=== PATIENT | female | born 1960 | race Caucasian/White ===

== ENCOUNTER → 2017-09-02 | Outpatient (CLI) | payer BC ==
[~2017-09-02] MED LIST: ACETAZOLAMIDE; ADVIL100 MG PO; CARB200 PO; CYCL10 PO; Lovastatin10 MG PO
== END | disposition home or self-care (01) ==
LOC: LAB 10:26
PROVIDERS: Hospitalist
DX: Z12.4 Encounter for screening for malignant neoplasm of cervix (principal)
CPT/HCPCS: G0145

== ENCOUNTER 2018-07-10 06:17 | Day surgery (SDC) | payer BC, OTHER ==
[~2018-07-10] VITALS: Ht 165.1 cm; Wt 97.8 kg
--- NOTE | 2018-07-10 07:34 | NUR ---
07/10/18 0734 Giovanni Pemberton 1ST IV ATTEMPT IN RH UNSUCCESSFUL, ORSC.AMH 2ND IV ATTEMPT IN RWRIST UNSUCCESSFUL, ORSC.RXS 3RD IV ATTEMPT SUCCESSFUL IN RAC, ORSC.RXS
--- NOTE | 2018-07-10 09:09 | NUR ---
07/10/18 0909 Carlota Chaudhary PT INTO RECLINER AT 0905. PT CURRENTLY DENYING PAIN/NAUSEA. FAMILY AT BEDSIDE. WARM BLANKETS PROVIDED. VSS.
== END 2018-07-10 09:52 | disposition home or self-care (01) ==
LOC: ORSCSDS 06:17
PROVIDERS: Surgery
PROC: 0HBU0ZZ Excision of Left Breast, Open Approach (ICD-10-PCS; principal; 2018-07-10 07:30)
DX: D05.12 Intraductal carcinoma in situ of left breast (principal); E78.00 Pure hypercholesterolemia, unspecified; Z79.899 Other long term (current) drug therapy; E66.01 Morbid (severe) obesity due to excess calories; Z68.35 Body mass index [BMI] 35.0-35.9, adult
CPT/HCPCS: 88307; J0690; J2250; J3010; J7120

== ENCOUNTER 2020-04-25 06:53 | Day surgery (SDC) | payer OTHER ==
[~2020-04-25] VITALS: Wt 100.7 kg
--- NOTE | 2020-04-25 08:39 | NUR ---
0809 PATIENT TRANSPORTED [facility] [employer] TO RADIOLOGY FOR SCHEDULED CTA. PATIENT DENIES CHEST PAIN TODAY AND HAS NOT TAKEN ANY MEDICATION IN PREPARTION FOR THIS EXAM. 0830 TRANSPORTED TO RADIOLOGY RECOVERY ROOM VIA GURNEY. STABLE ON FEET. STATES SHE HAS A MILD HEADACHE POST NITRO AND RATES 2/10. DRINKING WATER. Discharge instructions reviewed with patient. Patient verbalizes understanding. Copy given to patient to take home. Patient States Post-Procedure ride home has been arranged with her .
== END 2020-04-25 22:42 | disposition home or self-care (01) ==
LOC: CT 06:53 → ORD 06:53 → CT 08:00 → ORD 22:42
DX: I25.10 Atherosclerotic heart disease of native coronary artery without angina pectoris (principal); E78.5 Hyperlipidemia, unspecified; E66.01 Morbid (severe) obesity due to excess calories; Z79.82 Long term (current) use of aspirin; Z79.02 Long term (current) use of antithrombotics/antiplatelets; Z87.891 Personal history of nicotine dependence; Z88.0 Allergy status to penicillin; Z68.38 Body mass index [BMI] 38.0-38.9, adult; Z82.49 Family history of ischemic heart disease and other diseases of the circulatory system; K21.9 Gastro-esophageal reflux disease without esophagitis
CPT/HCPCS: 75574; Q9967

== ENCOUNTER → 2021-09-13 | Outpatient (CLI) | payer OTHER | END | disposition home or self-care (01) | LOC: LAB 09:15 | PROVIDERS: Hospitalist | DX: Z12.4 Encounter for screening for malignant neoplasm of cervix (principal) | CPT/HCPCS: G0145 ==

== ENCOUNTER 2024-03-08 11:55 | Inpatient (IN) | payer OTHER ==
[~2024-03-08] VITALS: Ht 162.6 cm; Wt 89.1 kg
[2024-03-08] MEDS ORDERED: Aspir 8181 MG PO (12:28)
[2024-03-08] MEDS ORDERED: 1/2 NS 250ml250 ML PO (12:28)
[2024-03-08] MEDS ORDERED: Nitroglycerin 0.4 MG SUBL SL ONE (12:30)
[2024-03-08 12:40] LABS: BASOPHILS ABSOLUTE AUTO 0.04 K/mm3 (0.00-0.23); BASOPHILS PERCENT AUTO 1 % (0-2); EOSINOPHILS ABSOLUTE AUTO 0.05 K/mm3 (0.00-0.68); EOSINOPHILS PERCENT AUTO 1 % (0-6); Hematocrit 43.8 % (33.0-51.0); Hemoglobin 14.8 g/dL (11.5-16.0); IMMATURE GRAN ABSOLUTE AUTO 0.02 K/mm3 (0.00-0.10); IMMATURE GRAN PERCENT AUTO 0 % (0-1); LYMPHOCYTES ABSOLUTE AUTO 2.02 K/mm3 (0.84-5.20); LYMPHOCYTES PERCENT AUTO 37 % (21-46); MONOCYTES ABSOLUTE AUTO 0.41 K/mm3 (0.16-1.47); MONOCYTES PERCENT AUTO 8 % (4-13); Mean Corpuscular HGB 31.5 pg (26.0-34.0); Mean Corpuscular HGB Conc 33.8 g/dL (31.5-36.5); Mean Corpuscular Volume 93 fL (80-100); Mean Platelet Volume 9.2 fL (9.1-12.4); NEUTROPHILS ABSOLUTE AUTO 2.91 K/mm3 (1.96-9.15); NEUTROPHILS PERCENT AUTO 53 % (41-73); Platelet Count 195 K/mm3 (150-400); RDW Standard Deviation 41.8 fL (35.1-46.3); White Blood Cell Count 5.45 K/mm3 (4.00-11.30)
[2024-03-08 12:58] LABS: Albumin, Blood 3.7 g/dL (3.4-5.0); Bilirubin, Total 0.3 mg/dL (0.1-1.0); Bun/Creatinine Ratio 16.2 (12.0-20.0); Calcium, Blood 8.9 mg/dL (8.5-10.1); Creatinine, Blood 0.74 mg/dL (0.40-1.00); Globulin, Blood 3.7 g/dL (2.2-4.0); Potassium, Blood 3.8 mmol/L (3.5-5.5); Total Protein, Blood 7.4 g/dL (6.4-8.2)
[2024-03-08] MEDS ORDERED: Acetaminophen 325 MG TABLET PO PRN (14:15)
[2024-03-08] MEDS ORDERED: Aspirin 325 MG Tab PO ONE (14:21)
[2024-03-08] MEDS ORDERED: Aspirin 325 MG Tab PO SCH (14:45)
[2024-03-08] MEDS ORDERED: Clopidogrel Bisulfate 300 MG Cap PO ONE (15:06)
[2024-03-08 15:37] VITALS: BP 165/88
[2024-03-08] MEDS ORDERED: PredniSONE 20 MG Tab PO SCH (16:00)
[2024-03-08] MEDS ORDERED: Loratadine 10 MG Tab PO SCH (16:00)
[2024-03-08 16:04] LABS: Anti-Xa UFH, PHA Monitoring <0.10 IU/mL; International Normalized Ratio 1.03
[2024-03-08] MEDS ORDERED: Dose Adjust by Pharmacy XX STA ×2 (16:06→23:05)
[2024-03-08] MEDS ORDERED: Heparin Sodium 5000 Units/ML 1ML MDV IV ONE (16:10)
[2024-03-08] MEDS ORDERED: Heparin Sodium,Porcine/0.5 NS 500 ML IV SCH (16:10)
--- NOTE | 2024-03-08 16:36 | NUR ---
ARRIVAL TO PCU 2/SHIFT SUMMARY PT ARRIVED TO PCU 2 AT APPROXIMATELY 1510. PT TRANSFERED FROM ER [facility] TO HOSPITAL BED IND. A&Ox4, ORIENTED TO CALL LIGHT/UNIT, CALLS AND COMMUNICATES NEEDS APPROPRIATELY. BP ELEVATED WITH SBP 160's, ADMINISTERED SCHEDULED BP MEDICATION. SINUS 60-70's, DENIES CP/PRESSURE. SpO2> 92% RA, DENIES SOB. IND IN ROOM. HEPARIN gtt INFUSING PER EMAR, MANAGED BY PHARMACY. DENIES PAIN. SPOUCE AT BEDSIDE. NO OTHER EVENTS, WILL REPORT TO ONCOMING RN.
[2024-03-08] MEDS ORDERED: Carvedilol 3.125 MG Tab PO SCH (17:00)
[2024-03-08 20:03] VITALS: BP 165/90
[2024-03-08] MEDS ORDERED: CarBAMazepine 200 MG Tab PO SCH (21:00)
[2024-03-08 23:42] VITALS: BP 140/83
[2024-03-09] VITALS (14 sets, daily range): BP systolic 96–167; BP diastolic 46–92
[2024-03-09 04:35] LABS: BASOPHILS ABSOLUTE AUTO 0.03 K/mm3 (0.00-0.23); BASOPHILS PERCENT AUTO 1 % (0-2); EOSINOPHILS ABSOLUTE AUTO 0.01 K/mm3 (0.00-0.68); EOSINOPHILS PERCENT AUTO 0 % (0-6); Hematocrit 42.1 % (33.0-51.0); Hemoglobin 14.2 g/dL (11.5-16.0); IMMATURE GRAN ABSOLUTE AUTO 0.01 K/mm3 (0.00-0.10); IMMATURE GRAN PERCENT AUTO 0 % (0-1); LYMPHOCYTES ABSOLUTE AUTO 1.92 K/mm3 (0.84-5.20); LYMPHOCYTES PERCENT AUTO 34 % (21-46); MONOCYTES ABSOLUTE AUTO 0.38 K/mm3 (0.16-1.47); MONOCYTES PERCENT AUTO 7 % (4-13); Mean Corpuscular HGB 31.4 pg (26.0-34.0); Mean Corpuscular HGB Conc 33.7 g/dL (31.5-36.5); Mean Corpuscular Volume 93 fL (80-100); Mean Platelet Volume 9.3 fL (9.1-12.4); NEUTROPHILS ABSOLUTE AUTO 3.31 K/mm3 (1.96-9.15); NEUTROPHILS PERCENT AUTO 59 % (41-73); Platelet Count 193 K/mm3 (150-400); RDW Coefficient Variation 12.2 % (11.7-14.2); RDW Standard Deviation 41.7 fL (35.1-46.3); Red Blood Cell Count 4.52 M/mm3 (3.80-5.20); White Blood Cell Count 5.66 K/mm3 (4.00-11.30)
[2024-03-09 04:54] LABS: Albumin, Blood 3.3 g/dL (3.4-5.0); Albumin/Globulin Ratio 0.9 (0.8-1.8); Bilirubin, Total 0.3 mg/dL (0.1-1.0); Bun/Creatinine Ratio 17.2 (12.0-20.0); Creatinine, Blood 0.64 mg/dL (0.40-1.00); Globulin, Blood 3.5 g/dL (2.2-4.0); Magnesium, Blood 2.1 mg/dL (1.6-2.4); Potassium, Blood 3.7 mmol/L (3.5-5.5); Total Protein, Blood 6.8 g/dL (6.4-8.2)
[2024-03-09] MEDS ORDERED: Dose Adjust by Pharmacy XX STA ×2 (05:11→06:52)
--- NOTE | 2024-03-09 05:36 | NUR ---
Shift summary- Patient has been NPO since mignight for angiogram today, prepped with CHG wipes and changed into gown. Denied chest pain, BP improved. C/O headache at the beginning of the shift which was relieved with PRN tylenol. NSR on tele, VSS on RA. Getting OOB independently. Hep gtt currently infusing at 14u/kg/hr. Uneventful night, slept well and without complaints.
--- NOTE | 2024-03-09 06:59 | NUR ---
Heparin gtt adjustment heparin gtt rate adjusted back to 15u/kg/hr- correction in [place] made on labs
[2024-03-09] MEDS ORDERED: Aspirin 81 MG TabEC PO SCH (09:00)
[2024-03-09] MEDS ORDERED: Clopidogrel Bisulfate 75 MG Tab PO SCH ×2 (09:00→14:30)
[2024-03-09] MEDS ORDERED: Heparin Sodium 1000 Units/ML 10ML MDV ONE (10:36)
[2024-03-09] MEDS ORDERED: NS 250 ML IV ONE (10:36)
[2024-03-09] MEDS ORDERED: Verapamil HCL 2.5 MG/ML 2ML Injection ONE (10:36)
[2024-03-09] MEDS ORDERED: NS 1,000 ML IV ONE ×2 (10:36→10:53)
[2024-03-09] MEDS ORDERED: Nitroglycerin 2 MG/20 ML BTL ONE (10:36)
[2024-03-09] MEDS ORDERED: Midazolam HCl 1MG / ML 2ML Vial ONE (10:53)
[2024-03-09] MEDS ORDERED: FentaNYL Citrate 50 MCG/ML 2 ML Injection ONE (10:53)
--- NOTE | 2024-03-09 10:55 | NUR ---
UPDATE PT TAKEN TO MANUFACTURING [employer]PERATIONS MANAGER FOR PROCEDURE. WILL AWAIT RETURN
[2024-03-09] MEDS ORDERED: DiphenhydrAMINE HCl 50 MG/ML 1ML Vial ONE (11:00)
[2024-03-09] MEDS ORDERED: Famotidine 10 MG/ML 2ML Vial ONE (11:27)
[2024-03-09] MEDS ORDERED: HydrALAZINE HCl 20 MG / ML 1ML Vial ONE (11:48)
--- NOTE | 2024-03-09 12:35 | NUR ---
UPDATE PT RETURNED FROM THE CIDER MAKER. BP STABLE. HR REMAINS NSR 60'S. O2 SATS REMAIN ABOVE 90% ON RA. PT DENIES ANY PAIN. RIGHT RADIAL SITE WITH TR BAND AND 9ML OF AIR IN BAND. PT ECUCATED ON RIGHT ARM RESTRICTIONS. ARM BOARD IN PLACE.
[2024-03-09] MEDS ORDERED: Enoxaparin 40 MG/0.4 ML SYR SC SCH (16:00)
[2024-03-09] MEDS ORDERED: Carvedilol 6.25 MG Tab PO SCH (17:00)
--- NOTE | 2024-03-09 17:30 | NUR ---
SHIFT SUMMARY PT REMAINS ALERT AND ORIENTED. VS STABLE. O2 SATS REMAIN ABOVE 90% ON RA. PT CONTINUES TO DENY ANY PAIN. RIGHT RADIAL SITE RECOVERED ORDERED WITH NO COMPLICATIONS. ARM BOARD CONTINUES TO BE IN PLACE. PT FOLLOWING RIGHT ARM RESTRICTIONS. PT UP INDEPENDENT IN THE ROOM.
--- NOTE | 2024-03-10 00:11 | NUR ---
PT SLEEP IN BED, AWOKE FOR VITAL SIGNS. NO C/O PER PT AT THIS TIME. RT RADIAL SITE REMAINS INTAKE, ARM BOARD IN PLACE.
--- NOTE | 2024-03-10 03:01 | NUR ---
PT C/O MILD RT WRIST PAIN. RT RADIAL ANGIO SITE STILL INTACT NO S/S BRUISING/LEAKING, RADIAL PULSE WNL. PT MEDICATED FOR PAIN SEE SEP.
[2024-03-10 03:59] VITALS: BP 134/79
[2024-03-10 04:05] LABS: Hematocrit 46.6 % (33.0-51.0); Hemoglobin 15.4 g/dL (11.5-16.0); Mean Corpuscular HGB 31.2 pg (26.0-34.0); Mean Corpuscular Volume 94 fL (80-100); Mean Platelet Volume 9.6 fL (9.1-12.4); Platelet Count 215 K/mm3 (150-400); RDW Coefficient Variation 12.5 % (11.7-14.2); RDW Standard Deviation 43.3 fL (35.1-46.3); Red Blood Cell Count 4.94 M/mm3 (3.80-5.20); White Blood Cell Count 6.65 K/mm3 (4.00-11.30)
[2024-03-10 04:26] LABS: Magnesium, Blood 2.2 mg/dL (1.6-2.4)
[2024-03-10 04:27] LABS: Bun/Creatinine Ratio 17.7 (12.0-20.0); Calcium, Blood 9.4 mg/dL (8.5-10.1); Creatinine, Blood 0.79 mg/dL (0.40-1.00); Phosphorus, Blood 3.1 mg/dL (2.5-4.9); Potassium, Blood 3.7 mmol/L (3.5-5.5)
--- NOTE | 2024-03-10 06:29 | NUR ---
NO ISSUES OVER THE SHIFT. RT RADIAL SITE REMAINS INTACT. PT HAD ONE EPISODE OF PAIN AT SITE AND WAS MEDICATED FOR THAT. ARM BOARD REMAINS IN PLACE. PT IS AWARE OF ARM RESTRICTIONS AND FOLLOWS THOSE WELL. VS REMAIN STABLE. PT REMAINS INDEPENDENT TO THE BATHROOM.
[2024-03-10 07:42] VITALS: BP 137/77
[2024-03-10] MEDS ORDERED: PredniSONE 20 MG Tab PO ONE (11:27)
[2024-03-10] MEDS ORDERED: CARV6.25 PO (11:36)
[2024-03-10] MEDS ORDERED: CLOP75 PO (11:36)
[2024-03-10 11:39] VITALS: BP 131/76
--- NOTE | 2024-03-10 12:52 | NUR ---
PT DISCHARGED TO HOME WITH DISCHARGE ORDERS, AT THE BEDSIDE ABLE TO PROVIDE TRANSPORTATION FOR THE PT. VITALS HAS BEEN STABLE. NO CHEST PAIN/PRESSURE. RIGHT RADIAL SITE WITH TEGADERM IN PLACE CDI. PT FOR CARDIAC REHAB REFERRAL. ALL NEW MEDICATIONS AND DISCHARGE INSTRUCTIONS DISCLOSED WITH BOTH PT AND THE . NO OTHER ISSUES ENCOUNTERED ALL BELONGINGS SENT WITH THE PT, PT AMBULATORY UPON DISCHARGE
== END 2024-03-10 12:09 | disposition home or self-care (01) | DRG 287 ==
LOC: ER 11:55 → PCU 11:56
PROVIDERS: Emergency Medicine; ADMIT Hospitalist
PROC: 4A023N7 Measurement of Cardiac Sampling and Pressure, Left Heart, Percutaneous Approach (ICD-10-PCS; principal; 2024-03-09)
PROC: B2111ZZ Fluoroscopy of Multiple Coronary Arteries using Low Osmolar Contrast (ICD-10-PCS; 2024-03-09)
PROC: 4A033BC Measurement of Arterial Pressure, Coronary, Percutaneous Approach (ICD-10-PCS; 2024-03-09)
DX: I25.110 Atherosclerotic heart disease of native coronary artery with unstable angina pectoris (principal); I10 Essential (primary) hypertension; E78.5 Hyperlipidemia, unspecified; E83.119 Hemochromatosis, unspecified; E78.00 Pure hypercholesterolemia, unspecified; E66.9 Obesity, unspecified; Z68.32 Body mass index [BMI] 32.0-32.9, adult; G40.909 Epilepsy, unspecified, not intractable, without status epilepticus; Z85.3 Personal history of malignant neoplasm of breast; Z88.0 Allergy status to penicillin; Z91.041 Radiographic dye allergy status; Z79.82 Long term (current) use of aspirin; Z79.899 Other long term (current) drug therapy; Z82.49 Family history of ischemic heart disease and other diseases of the circulatory system; Z98.51 Tubal ligation status; Z98.890 Other specified postprocedural states; Z87.891 Personal history of nicotine dependence
CPT/HCPCS: 36415; 71046; 80048; 80053; 83735; 84100; 84484; 85025; 85027; 85347; 85520; 85610; 93005; 93010; 93306; 93458; 93571; 93572; 94760; 96374; 96376; 99152; 99153; 99285-25; A9270; C1769; C1887; C1894; G0378; J0360; J1200; J1644; J1650; J2250; J3010; J7030; J7050; J7512; Q9967

== ENCOUNTER → 2025-05-20 | Outpatient (CLI) | payer OTHER | LOC: LAB 11:00 | DX: R56.9 Unspecified convulsions (principal); R53.83 Other fatigue ==